=== PATIENT | female | born 1990 | race Caucasian/White ===

== ENCOUNTER → 2017-06-07 | Outpatient (CLI) | payer OTHER ==
[~2017-06-07] MED LIST: CALC500C70 PO; CHOL1TAB42 PO; MESA1.2T PO; MYCO250C7 PO; MYCO500T4 PO; TACR1CAP PO
[2017-06-07 11:15] LABS: COMPLETE YES; EOS % 2.7 %; HEMATOCRIT 30.9 % (37-47); IG% 0.3 %; LYMPH % 19.7 %; LYMPH ABS # 0.59 K/uL (1.2-3.4); MEAN CORPUSCULAR HEMOGLOBIN 23.5 pg (25-34); MEAN CORPUSCULAR HGB CONC 30.1 g/dl (32-36); MONO % 13.3 %; PLATELET COUNT 178 K/uL (130-400); RED BLOOD COUNT 3.96 M/uL (4.2-5.4)
[2017-06-07 11:25] LABS: ALT/SGPT 107 U/L (12-78); BLOOD UREA NITROGEN 26 mg/dl (7-18); BUN/CREATININE RATIO 31.2 (10-20); CALCIUM 7.7 mg/dl (8.5-10.1); CARBON DIOXIDE 24 mmol/L (21-32); CHLORIDE 116 mmol/L (98-107); CREATININE 0.82 mg/dl (0.60-1.20); GLUCOSE 89 mg/dl (70-99); SODIUM 143 mmol/L (136-145)
[2017-06-07 11:28] LABS: ALB/GLOB RATIO 0.6 (0.9-2); ALKALINE PHOSPHATASE 343 U/L (45-117); AST/SGOT 109 U/L (15-37)
== END | disposition home or self-care (01) ==
LOC: C.LABBC 08:53
PROVIDERS: ATTEND Internal Medicine Hepatology
DX: Z94.4 Liver transplant status (principal); Z79.899 Other long term (current) drug therapy

== ENCOUNTER 2017-08-04 09:56 | Observation (INO) | payer OTHER ==
[2017-08-01 14:44] VITALS: BMI 26.0
[~2017-08-04] VITALS: Ht 167.6 cm; Wt 72.7 kg
[~2017-08-04 09:56] MED LIST changes: -CHOL1TAB42 PO; -MYCO500T4 PO; +SODIUM CHLORIDE 0.9% 500ML 500 ML IV ONE
[2017-08-04 10:12] VITALS: Ht 167.6 cm; Wt 72.7 kg
[2017-08-04] MEDS ORDERED: PROPOFOL IV EMULSION 10 MG/ML 20 ML VIAL IV ONE (10:41)
[2017-08-04] MEDS ORDERED: LIDOCAINE HCL 2% 2 ML VIAL (20MG/ML) ONE (10:41)
[2017-08-04] MEDS ORDERED: MIDAZOLAM HCL 1 MG/ML 2ML VIAL ONE (10:41)
--- NOTE | 2017-08-04 10:41 | Endo History and Physical ---
History & Physical Date of Service: Aug 04, 2017. Chief Complaint: RECTAL BLEEDING Referring Physician: DR SIMÓN CHOWDHURY History of Present Illness 26 yo CF who presents for Colonoscopy secondary to rectal bleeding. Past Surgical History Hx Cardiac Surgery: No Hx Internal Defibrillator: No Hx Pacemaker: No Hx Abdominal Surgery: No Hx of Implantable Prosthesis: No Hx Post-Op Nausea and Vomiting: No Hx Cancer Surgery: No Hx Thoracic Surgery: No Hx Orthopedic: No Hx Urinary Tract Surgery: No Family History Colon CA Social History Smoking Status: Never Smoker Hx Substance Use: No Hx Alcohol Use: No Allergies Coded Allergies: Amoxicillin (Verified Allergy, Intermediate, RASH, 08/01/17) Penicillins (Verified Allergy, Intermediate, Rash, 08/01/17) Current Medications Reported Home Medications Medications Dose Route/Sig Max Daily Dose Days Date Category Astagraf Xl (Tacrolimus) 0.5 Mg Cap 9 Cap PO BID 08/01/17 Reported Mycophenolate Mofetil 250 Mg Cap 4 Cap PO BID 08/01/17 Reported Os-Guru 500 Plus D (Calcium/Vitamin D) Tab 1 Tab PO QAM 05/11/15 Reported Lialda (Mesalamine) 1.2 Gm Tab 4.8 Gm PO QAM 05/11/15 Reported Vital Signs Weight (Kilograms): 72.73 Height (Feet): 5 Height (Inches): 6 Date Time Temp Pulse Resp B/P (MAP) Pulse Ox O2 Delivery O2 Flow Rate FiO2 08/04/17 10:14 36.5 88 20 107/67 (80) 100 Room Air Physical Exam General Appearance: WD/WN, no apparent distress Respiratory/Chest: Auscultation: breath sounds normal Cardiovascular: Heart Auscultation: RRR Abdomen: Bowel Sounds: normal Inspection & Palpation: soft, non-distended, no tenderness, guarding & rebound Assessment and Plan Assessment: 26 yo CF who presents for Colonoscopy secondary to rectal bleeding. Plan: Proceed with colonoscopy.
--- NOTE | 2017-08-04 11:17 | GI REPORT ---
Procedure Date: 08/04/2017 10:45 AM Procedure: Colonoscopy Indications: Chronic diarrhea, Rectal bleeding Medicines: Monitored Anesthesia Care Complications: No immediate complications. Estimated Blood Loss: Estimated blood loss: none. Procedure: Pre-Anesthesia Assessment: - Prior to the procedure, a History and Physical was performed, and patient medications and allergies were reviewed. The patient's tolerance of previous anesthesia was also reviewed. The risks and benefits of the procedure and the sedation options and risks were discussed with the patient. All questions were answered, and informed consent was obtained. Prior Anticoagulants: The patient has taken no previous anticoagulant or antiplatelet agents. ASA Grade Assessment: III - A patient with severe systemic disease. After reviewing the risks and benefits, the patient was deemed in satisfactory condition to undergo the procedure. After I obtained informed consent, the scope was passed under direct vision. Throughout the procedure, the patient's blood pressure, pulse, and oxygen saturations were monitored continuously. The scope was introduced through the anus and advanced to the terminal ileum. The colonoscopy was performed without difficulty. The patient tolerated the procedure well. The quality of the bowel preparation was good. The ileocecal valve, appendiceal orifice, and rectum were photographed. Findings: Inflammation characterized by erosions, erythema and loss of vascularity was found in a continuous and circumferential pattern from the rectum to the cecum. This was moderate in severity, and when compared to previous examinations, the findings are worsened. Biopsies were taken with a cold forceps for histology. Non-bleeding internal hemorrhoids were found during endoscopy. The hemorrhoids were small. Impression: - Inflammation was found from the rectum to the cecum secondary to pancolitis ulcerative colitis. The findings are worsened compared to previous examinations. Biopsied. - Non-bleeding internal hemorrhoids. Recommendation: - Resume previous diet. - Continue present medications. - Repeat colonoscopy in 1 year for surveillance based on pathology results. - Return to primary care physician as previously scheduled. Haile Phoenix, DO 08/04/2017 11:16:50 AM This report has been signed electronically. Note Initiated On: 08/04/2017 10:45 AM I attest to the content of the Intraoperative Record and orders documented therein, exceptions below
--- NOTE | 2017-08-04 12:13 | Anesthesiology Progress Note ---
Anesthesia Post Op Note Date & Time Aug 04, 2017 at 12:12 Vital Signs Pain Intensity: 0 Vital Signs Past 12 Hours Date Time Temp Pulse Resp B/P (MAP) Pulse Ox O2 Delivery O2 Flow Rate FiO2 08/04/17 11:45 91 20 107/79 (88) 100 Room Air 08/04/17 11:30 88 20 98/70 (79) 100 Room Air 08/04/17 11:15 36.2 82 20 92/59 (70) 100 Room Air 08/04/17 10:14 36.5 88 20 107/67 (80) 100 Room Air Notes Mental Status: alert / awake / arousable, participated in evaluation Pt Amnestic to Procedure: Yes Nausea / Vomiting: adequately controlled Pain: adequately controlled Airway Patency, RR, SpO2: stable & adequate BP & HR: stable & adequate Hydration State: stable & adequate Anesthetic Complications: no major complications apparent
--- NOTE | 2017-08-04 14:36 | GASTROINTESTINAL CONSULTATION ---
DATE OF CONSULTATION: 08/04/2017 CONSULTATION/TRANSFER NOTE AGE: 26. SEX: Female. RACE: . I had the pleasure of seeing Johanne Moe today in the outpatient GI lab of [facility]. She is a 26-year-old female, who presented for colonoscopy secondary to her history of ulcerative colitis, which was initially diagnosed at age 17. Currently, she is on Lialda therapy at 4.8 grams daily and presented for further evaluation via colonoscopy for disease activity assessment. It should be noted that approximately 3 years ago, she developed a PSC and underwent a liver transplant at [facility] in [place]. She does take Prograf as well as CellCept and has been on Ursodiol in the past and states that she has been compliant with these medications. She underwent a colonoscopy today and was noted to have moderate disease activity throughout the colon from the rectum to the cecum without any skipped lesions, polyps, or nodules. Her terminal ileum was evaluated on the colonoscopy, though a picture was not obtained and there was no evidence of backwash ileitis or terminal ileitis. In post-procedure recovery area, I did notice that the patient had significant scleral icterus and on evaluation of her most recent laboratory work, which was done on August 02, she was noted to have a total bilirubin of 8.4, an AST of 298, an ALT of 188 and an alkaline phosphatase of 592. She did not have a PT or INR performed on her most recent laboratory studies. Her numbers had increased significantly from prior testing on July 01, at which time she was noted to have a bilirubin of 1.9, an AST 109, an ALT of 95 and an alkaline phosphatase of 361. 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 Due to the patient's elevated bilirubin level as well as her history of liver transplant, I did contact Alvino Deleon, her media services coordinator at [facility] and discussed the case in detail with Dr. Kong of the gastroenterology and hepatology division at [facility] and decision was made that the patient should be transferred via ground transport to [facility] for further evaluation. I did relay to Dr. Kong that I did find mild to moderate disease activity throughout the colon, though I have not started her on any medications and he assured me that he would have the [facility] IBD team see her while at [facility] as well and start further treatment as she is currently just maintained on Lialda therapy. PHYSICAL EXAMINATION: VITAL SIGNS: At the time of the patient's transfer, her vital signs included a temp of 36.2, pulse 91, respirations 20, blood pressure 107/79 and pulse ox 100% on room air. GENERAL: She is alert and oriented x3, cooperative, in no acute distress. She has obvious jaundice noted. HEAD: Normocephalic and atraumatic. EYES: Pupils equally round. Sclerae are icteric. ENT: External evaluation of ears and nose are normal. Oropharynx is clear. NECK: Soft and supple. There is no JVD or lymphadenopathy. CHEST: Clear to auscultation bilaterally. CARDIOVASCULAR SYSTEM: Regular rate and rhythm. ABDOMEN: Soft, nontender, and nondistended. There are positive bowel sounds. There is no obvious hepatosplenomegaly. She does have a large surgical incisional scar consistent with liver transplant. EXTREMITIES: No clubbing, cyanosis, or edema. SKIN: Jaundice. NEUROLOGIC: No asterixis. IMPRESSION: A 26-year-old female with ulcerative pancolitis, mild to moderate disease activity, and a history of primary sclerosing cholangitis, status post orthotopic liver transplant approximately 3 years ago at [facility] with jaundice. PLAN: I will recommend that the patient be transferred to the [facility] for further evaluation as the patient is status post liver transplant. She will also be seen at that time while hospitalized by the IBD team at [facility] and we will await their recommendations regarding further treatment. I will send copies of her most recent colonoscopy performed today. I will also forward them copies of her pathology when it returns as random biopsies were performed. I will await the recommendations and will transfer the patient in stable condition at this time. Once again, thanks for allowing me to participate in the care of this patient. If you have any further questions, please do not hesitate in contacting me.
[2017-08-04] MEDS ORDERED: OXYCODONE HCL IR 5 MG TAB (IMMEDIATE RELEASE) PO PRN (16:45)
--- NOTE | 2017-08-04 17:35 | Progress Note ---
Progress Note Date of Service Aug 04, 2017. Progress Note 26-year-old female who was placed as an outpatient and inpatient bed awaiting transportation to [facility] in [place]. The patient has a history of a liver transplant approximately 3 years ago after having liver failure from primary sclerosing cholangitis and ulcerative colitis. The patient presented for a colonoscopy today due to increased diarrhea. The patient was found to have marked elevation of her bilirubin to the 8 range, it was previously was less than 2. The patient denies any medical indiscretion. The patient is comfortable having no complaints she is visibly easily seen to be jaundiced. Her vital signs are reviewed and are stable post procedure her cardiac exam is regular lungs clear abdomen is normoactive bowel sounds soft nontender next She is found to be C. difficile positive per urgent C. difficile testing The patient will be kept in a facility transfer report has been arranged with Dr. helm and [facility] in [place] we will initiate oral vancomycin therapy due to Jarrod's liver metabolism and continue her antirejection meds. If she's here in the morning we will reevaluate and consider repeat laboratory.
[2017-08-04 17:53] VITALS: BP 93/58; PULSE 87; TEMP 36.7; O2SAT 96
[2017-08-04] MEDS ORDERED: MYCOPHENOLATE MOFETIL 250 MG CAP (CELLCEPT) PO SCH (20:00)
[2017-08-04] MEDS ORDERED: RASPBERRY SYRUP 5 ML UDP PO SCH (20:00)
[2017-08-04] MEDS ORDERED: VANCOMYCIN HCL 125 MG/2.5ML SOLN PO SCH (20:00)
[2017-08-05] MEDS ORDERED: CALCIUM 600MG + VIT D 400 IU TAB PO SCH (08:00)
== END 2017-08-04 23:15 | disposition short-term general hospital (02) ==
LOC: C.GI 09:56 → ENRESERV 16:08 → INTOOBSV 17:27 → C.MS4W 17:27
PROVIDERS: ADMIT Internal Medicine; ATTEND Internal Medicine
PROC: 0DBE8ZX Excision of Large Intestine, Via Natural or Artificial Opening Endoscopic, Diagnostic (ICD-10-PCS; principal; 2017-08-04 10:40)
DX: K51.011 Ulcerative (chronic) pancolitis with rectal bleeding (principal); R17 Unspecified jaundice; Z94.4 Liver transplant status; B96.89 Other specified bacterial agents as the cause of diseases classified elsewhere; Z80.0 Family history of malignant neoplasm of digestive organs; Z79.899 Other long term (current) drug therapy; Z88.0 Allergy status to penicillin

== ENCOUNTER → 2017-12-09 | Outpatient (CLI) | payer OTHER ==
[~2017-12-09] MED LIST changes: -SODIUM CHLORIDE 0.9% 500ML 500 ML IV ONE
[2017-12-09 09:51] LABS: INR 1.3 (0.9-1.1)
== END | disposition home or self-care (01) ==
LOC: C.LAB 11:11
PROVIDERS: ATTEND Internal Medicine Hepatology
DX: Z94.4 Liver transplant status (principal); Z79.899 Other long term (current) drug therapy

== ENCOUNTER → 2017-12-25 | Outpatient (CLI) | payer OTHER ==
[2017-12-25 11:59] LABS: INR 1.3 (0.9-1.1)
[2017-12-25 12:11] LABS: ALBUMIN 2.2 gm/dl (3.4-5.0); ALT/SGPT 145 U/L (12-78); BLOOD UREA NITROGEN 11 mg/dl (7-18); CARBON DIOXIDE 23 mmol/L (21-32); CREATININE 0.75 mg/dl (0.60-1.20); GLUCOSE 108 mg/dl (70-99); POTASSIUM 3.7 mmol/L (3.5-5.1); SODIUM 141 mmol/L (136-145)
[2017-12-25 12:14] LABS: ALKALINE PHOSPHATASE 547 U/L (45-117); AST/SGOT 251 U/L (15-37)
[2017-12-27 06:54] LABS: FK506 TACROLIMUS HIGHLY SENS 5.6 MCG/L (5-20)
== END | disposition home or self-care (01) ==
LOC: C.LAB 10:37
PROVIDERS: ATTEND Internal Medicine Hepatology
DX: Z94.4 Liver transplant status (principal); Z79.899 Other long term (current) drug therapy

== ENCOUNTER → 2018-01-01 | Outpatient (CLI) | payer OTHER ==
[2018-01-01 11:23] LABS: INR 1.4 (0.9-1.1)
[2018-01-01 11:43] LABS: ALBUMIN 2.3 gm/dl (3.4-5.0); ALT/SGPT 133 U/L (12-78); AST/SGOT 190 U/L (15-37); BLOOD UREA NITROGEN 13 mg/dl (7-18); CALCIUM 7.7 mg/dl (8.5-10.1); CARBON DIOXIDE 20 mmol/L (21-32); GLUCOSE 95 mg/dl (70-99); POTASSIUM 3.8 mmol/L (3.5-5.1); SODIUM 142 mmol/L (136-145)
[2018-01-01 11:46] LABS: ALKALINE PHOSPHATASE 535 U/L (45-117); TOTAL PROTEIN 6.1 gm/dl (6.4-8.2)
[2018-01-02 23:00] LABS: FK506 TACROLIMUS HIGHLY SENS 9.2 MCG/L (5-20)
== END | disposition home or self-care (01) ==
LOC: C.LAB 16:27
PROVIDERS: ATTEND Internal Medicine Hepatology
DX: Z94.4 Liver transplant status (principal); Z79.899 Other long term (current) drug therapy

== ENCOUNTER → 2018-01-08 | Outpatient (CLI) | payer OTHER ==
[2018-01-08 11:10] LABS: INR 1.4 (0.9-1.1)
[2018-01-08 11:25] LABS: ALBUMIN 2.3 gm/dl (3.4-5.0); ALKALINE PHOSPHATASE 513 U/L (45-117); ALT/SGPT 150 U/L (12-78); AST/SGOT 273 U/L (15-37); BLOOD UREA NITROGEN 18 mg/dl (7-18); CALCIUM 7.9 mg/dl (8.5-10.1); CARBON DIOXIDE 22 mmol/L (21-32); CREATININE 0.69 mg/dl (0.60-1.20); GLUCOSE 97 mg/dl (70-99); POTASSIUM 3.7 mmol/L (3.5-5.1); SODIUM 142 mmol/L (136-145); TOTAL PROTEIN 5.8 gm/dl (6.4-8.2)
[2018-01-10 06:22] LABS: FK506 TACROLIMUS HIGHLY SENS 7.6 MCG/L (5-20)
== END | disposition home or self-care (01) ==
LOC: C.LAB 11:59
PROVIDERS: ATTEND Internal Medicine Hepatology
DX: Z94.4 Liver transplant status (principal); Z79.899 Other long term (current) drug therapy

== ENCOUNTER → 2018-01-23 | Outpatient (CLI) | payer OTHER ==
[2018-01-23 13:25] LABS: INR 1.3 (0.9-1.1)
[2018-01-23 14:34] LABS: ALBUMIN 2.3 gm/dl (3.4-5.0); ALKALINE PHOSPHATASE 423 U/L (45-117); ALT/SGPT 97 U/L (12-78); AST/SGOT 85 U/L (15-37); BLOOD UREA NITROGEN 21 mg/dl (7-18); CALCIUM 7.9 mg/dl (8.5-10.1); CARBON DIOXIDE 24 mmol/L (21-32); CREATININE 0.64 mg/dl (0.60-1.20); GLUCOSE 81 mg/dl (70-99); POTASSIUM 3.6 mmol/L (3.5-5.1); SODIUM 141 mmol/L (136-145)
[2018-01-27 07:43] LABS: FK506 TACROLIMUS HIGHLY SENS 12.4 MCG/L (5-20)
--- NOTE | 2018-03-06 09:15 | CODING QUERY NO DIAGNOSIS ---
TREATMENT RENDERED WITHOUT A DIAGNOSIS To promote full compliance with coding requirements relating to patient care, physician participation is requested in all cases of seismic computer uncertainty. Please assist us with providing a diagnosis/symptom for the test(s) below: A diagnosis/symptom was not documented on your Order. A valid diagnosis/symptom is required to bill all insurances. Please remember that we are unable to code a diagnosis of rule out, probable, possible, questionable, or suspected. Tests that require a diagnosis: DOS: 01/23/18 * TACROLIMUS [id number] DIAGNOSIS: * GAMMA GLUTAMYL TRANSPEPTIDASE DIAGNOSIS: * PT/INR DIAGNOSIS: * CMP DIAGNOSIS: * MAGNESIUM DIAGNOSIS: Provider Signature: Date: Thank you Janet Padilla Health Information Management Once completed, please kindly fax back to [phone] For questions please call [phone]
== END | disposition home or self-care (01) ==
LOC: C.LAB 17:59
PROVIDERS: ATTEND Internal Medicine Hepatology
DX: Z94.4 Liver transplant status (principal); Z79.899 Other long term (current) drug therapy

== ENCOUNTER → 2018-01-29 | Outpatient (CLI) | payer OTHER ==
[2018-01-29 11:02] LABS: INR 1.3 (0.9-1.1)
[2018-01-29 11:23] LABS: ALBUMIN 2.2 gm/dl (3.4-5.0); ALKALINE PHOSPHATASE 314 U/L (45-117); ALT/SGPT 69 U/L (12-78); AST/SGOT 58 U/L (15-37); BLOOD UREA NITROGEN 18 mg/dl (7-18); CALCIUM 8.1 mg/dl (8.5-10.1); CARBON DIOXIDE 22 mmol/L (21-32); CREATININE 0.72 mg/dl (0.60-1.20); GLUCOSE 94 mg/dl (70-99); POTASSIUM 3.8 mmol/L (3.5-5.1); SODIUM 143 mmol/L (136-145); TOTAL PROTEIN 5.5 gm/dl (6.4-8.2)
[2018-01-31 05:41] LABS: FK506 TACROLIMUS HIGHLY SENS 7.7 MCG/L (5-20)
== END | disposition home or self-care (01) ==
LOC: C.LABSPEC 12:09
PROVIDERS: ATTEND Internal Medicine Hepatology
DX: Z94.4 Liver transplant status (principal); Z79.899 Other long term (current) drug therapy

== ENCOUNTER → 2018-02-03 | Outpatient (CLI) | payer OTHER | END | disposition home or self-care (01) | LOC: C.LAB 13:29 | PROVIDERS: ATTEND Internal Medicine Hepatology | DX: Z94.4 Liver transplant status (principal); Z79.899 Other long term (current) drug therapy ==

== ENCOUNTER → 2018-02-05 | Outpatient (CLI) | payer OTHER ==
[2018-02-05 11:18] LABS: INR 1.3 (0.9-1.1)
[2018-02-05 11:34] LABS: ALBUMIN 2.2 gm/dl (3.4-5.0); ALKALINE PHOSPHATASE 368 U/L (45-117); ALT/SGPT 81 U/L (12-78); AST/SGOT 111 U/L (15-37); BLOOD UREA NITROGEN 15 mg/dl (7-18); CALCIUM 7.9 mg/dl (8.5-10.1); CARBON DIOXIDE 23 mmol/L (21-32); CREATININE 0.63 mg/dl (0.60-1.20); GLUCOSE 96 mg/dl (70-99); POTASSIUM 3.4 mmol/L (3.5-5.1); SODIUM 142 mmol/L (136-145); TOTAL PROTEIN 5.7 gm/dl (6.4-8.2)
[2018-02-07 07:42] LABS: FK506 TACROLIMUS HIGHLY SENS 5.3 MCG/L (5-20)
== END | disposition home or self-care (01) ==
LOC: C.LAB 08:55
PROVIDERS: ATTEND Internal Medicine Hepatology
DX: Z94.4 Liver transplant status (principal); Z79.899 Other long term (current) drug therapy

== ENCOUNTER → 2018-02-05 | Outpatient (CLI) | payer OTHER | END | disposition home or self-care (01) | LOC: C.LAB 08:57 | PROVIDERS: ATTEND Internal Medicine Hepatology | DX: Z94.4 Liver transplant status (principal); Z79.899 Other long term (current) drug therapy ==

== ENCOUNTER → 2018-02-12 | Outpatient (CLI) | payer OTHER ==
[2018-02-12 11:12] LABS: INR 1.3 (0.9-1.1)
[2018-02-14 00:45] LABS: FK506 TACROLIMUS HIGHLY SENS 4.2 MCG/L (5-20)
== END | disposition home or self-care (01) ==
LOC: C.LAB 16:52
PROVIDERS: ATTEND Internal Medicine Hepatology
DX: Z94.4 Liver transplant status (principal); Z79.899 Other long term (current) drug therapy

== ENCOUNTER → 2018-02-19 | Outpatient (CLI) | payer OTHER ==
[2018-02-19 11:02] LABS: INR 1.3 (0.9-1.1)
[2018-02-19 11:21] LABS: BLOOD UREA NITROGEN 14 mg/dl (7-18); CREATININE 0.65 mg/dl (0.60-1.20); GLUCOSE 90 mg/dl (70-99)
[2018-02-19 11:22] LABS: ALBUMIN 2.3 gm/dl (3.4-5.0); ALT/SGPT 108 U/L (12-78); CALCIUM 8.2 mg/dl (8.5-10.1); CARBON DIOXIDE 25 mmol/L (21-32); POTASSIUM 3.5 mmol/L (3.5-5.1); SODIUM 142 mmol/L (136-145)
[2018-02-19 11:24] LABS: ALKALINE PHOSPHATASE 439 U/L (45-117); AST/SGOT 134 U/L (15-37)
[2018-02-21 05:28] LABS: FK506 TACROLIMUS HIGHLY SENS 4.3 MCG/L (5-20)
== END | disposition home or self-care (01) ==
LOC: C.LAB 16:14
PROVIDERS: ATTEND Internal Medicine Hepatology
DX: Z94.4 Liver transplant status (principal); Z79.899 Other long term (current) drug therapy

== ENCOUNTER → 2018-02-26 | Outpatient (CLI) | payer OTHER ==
[2018-02-26 11:26] LABS: INR 1.3 (0.9-1.1)
[2018-02-26 11:36] LABS: ALBUMIN 2.1 gm/dl (3.4-5.0); ALT/SGPT 91 U/L (12-78); AST/SGOT 134 U/L (15-37); BLOOD UREA NITROGEN 15 mg/dl (7-18); CALCIUM 8.2 mg/dl (8.5-10.1); CARBON DIOXIDE 25 mmol/L (21-32); CREATININE 0.67 mg/dl (0.60-1.20); GLUCOSE 87 mg/dl (70-99); SODIUM 139 mmol/L (136-145)
[2018-02-26 11:41] LABS: ALKALINE PHOSPHATASE 410 U/L (45-117); TOTAL PROTEIN 5.9 gm/dl (6.4-8.2)
== END | disposition home or self-care (01) ==
LOC: C.LAB 16:45
PROVIDERS: ATTEND Internal Medicine Hepatology
DX: Z94.4 Liver transplant status (principal); Z79.899 Other long term (current) drug therapy

== ENCOUNTER → 2018-03-05 | Outpatient (CLI) | payer OTHER ==
[2018-03-05 11:07] LABS: INR 1.3 (0.9-1.1)
[2018-03-05 11:18] LABS: ALBUMIN 2.3 gm/dl (3.4-5.0); ALT/SGPT 87 U/L (12-78); AST/SGOT 88 U/L (15-37); BLOOD UREA NITROGEN 14 mg/dl (7-18); CALCIUM 7.9 mg/dl (8.5-10.1); CARBON DIOXIDE 22 mmol/L (21-32); CREATININE 0.69 mg/dl (0.60-1.20); GLUCOSE 81 mg/dl (70-99); POTASSIUM 3.6 mmol/L (3.5-5.1); SODIUM 143 mmol/L (136-145)
[2018-03-05 11:21] LABS: ALKALINE PHOSPHATASE 368 U/L (45-117); TOTAL PROTEIN 5.9 gm/dl (6.4-8.2)
[2018-03-07 01:50] LABS: FK506 TACROLIMUS HIGHLY SENS 6.2 MCG/L (5-20)
== END | disposition home or self-care (01) ==
LOC: C.LAB 16:38
PROVIDERS: ATTEND Internal Medicine Hepatology
DX: Z51.81 Encounter for therapeutic drug level monitoring (principal); Z79.899 Other long term (current) drug therapy

== ENCOUNTER → 2018-03-12 | Outpatient (CLI) | payer OTHER ==
[2018-03-12 11:16] LABS: INR 1.3 (0.9-1.1)
[2018-03-12 11:35] LABS: ALBUMIN 2.4 gm/dl (3.4-5.0); ALT/SGPT 103 U/L (12-78); AST/SGOT 138 U/L (15-37); BLOOD UREA NITROGEN 26 mg/dl (7-18); CALCIUM 8.4 mg/dl (8.5-10.1); CARBON DIOXIDE 24 mmol/L (21-32); CREATININE 0.79 mg/dl (0.60-1.20); GLUCOSE 90 mg/dl (70-99); POTASSIUM 4.2 mmol/L (3.5-5.1); SODIUM 142 mmol/L (136-145)
[2018-03-12 11:38] LABS: ALKALINE PHOSPHATASE 354 U/L (45-117); TOTAL PROTEIN 6.3 gm/dl (6.4-8.2)
[2018-03-14 07:31] LABS: FK506 TACROLIMUS HIGHLY SENS 11.1 MCG/L (5-20)
== END | disposition home or self-care (01) ==
LOC: C.LAB 16:16
PROVIDERS: ATTEND Internal Medicine Hepatology
DX: Z94.4 Liver transplant status (principal); Z79.899 Other long term (current) drug therapy

== ENCOUNTER → 2018-03-19 | Outpatient (CLI) | payer OTHER ==
[2018-03-19 11:04] LABS: INR 1.3 (0.9-1.1)
[2018-03-19 11:21] LABS: ALBUMIN 2.5 gm/dl (3.4-5.0); ALT/SGPT 104 U/L (12-78); AST/SGOT 114 U/L (15-37); BLOOD UREA NITROGEN 37 mg/dl (7-18); CARBON DIOXIDE 22 mmol/L (21-32); CREATININE 1.08 mg/dl (0.60-1.20); GLUCOSE 90 mg/dl (70-99); POTASSIUM 4.3 mmol/L (3.5-5.1); SODIUM 143 mmol/L (136-145)
[2018-03-19 11:24] LABS: ALKALINE PHOSPHATASE 342 U/L (45-117); TOTAL PROTEIN 6.1 gm/dl (6.4-8.2)
[2018-03-21 02:40] LABS: FK506 TACROLIMUS HIGHLY SENS 12.1 MCG/L (5-20)
== END | disposition home or self-care (01) ==
LOC: C.LAB 16:11
PROVIDERS: ATTEND Internal Medicine Hepatology
DX: Z94.4 Liver transplant status (principal); Z79.899 Other long term (current) drug therapy

== ENCOUNTER → 2018-03-26 | Outpatient (CLI) | payer OTHER ==
[2018-03-26 11:00] LABS: INR 1.3 (0.9-1.1)
[2018-03-26 11:11] LABS: ALBUMIN 2.5 gm/dl (3.4-5.0); ALT/SGPT 92 U/L (12-78); AST/SGOT 83 U/L (15-37); BLOOD UREA NITROGEN 26 mg/dl (7-18); CALCIUM 7.6 mg/dl (8.5-10.1); CARBON DIOXIDE 20 mmol/L (21-32); CREATININE 1.06 mg/dl (0.60-1.20); GLUCOSE 88 mg/dl (70-99); POTASSIUM 4.1 mmol/L (3.5-5.1); SODIUM 144 mmol/L (136-145)
[2018-03-26 11:14] LABS: ALKALINE PHOSPHATASE 320 U/L (45-117); TOTAL PROTEIN 6.3 gm/dl (6.4-8.2)
== END | disposition home or self-care (01) ==
LOC: C.LAB 10:16
PROVIDERS: ATTEND Internal Medicine Hepatology
DX: Z94.4 Liver transplant status (principal); Z79.899 Other long term (current) drug therapy